=== PATIENT | female | born 1955 | race Two or more races ===

== ENCOUNTER 2023-01-25 10:52 | Inpatient (IN) | payer OTHER ==
[~2023-01-25] VITALS: Ht 152.4 cm; Wt 78.5 kg
[2023-01-25] MEDS ORDERED: ECOTRIN81 MG PO (11:53)
[2023-01-25] MEDS ORDERED: CARDIZEM30 MG PO (11:54)
[2023-01-25] MEDS ORDERED: ISOSORBIDE DINI30 MG PO (11:54)
[2023-01-25] MEDS ORDERED: CILOSTAZOL100 MG PO (11:54)
[2023-01-25] MEDS ORDERED: METFORMIN HCL500 M3 PO (11:55)
[2023-01-25] MEDS ORDERED: DICYCLOMINE HCL10 MG PO (11:55)
[2023-01-25] MEDS ORDERED: DULOXETINE HCL40 MG PO (11:56)
[2023-01-25] MEDS ORDERED: LIPITOR40 M1 PO (11:56)
[2023-01-25] MEDS ORDERED: GABAPENTIN600 MG PO (11:56)
[2023-01-29] MEDS ORDERED: PERCOCET 5-3251 EACH PO (07:10)
[2023-01-29] MEDS ORDERED: MEDROLPACK PO (07:11)
[2023-01-29] MEDS ORDERED: AMOX-CLAV 875-1 EACH PO (07:11)
[2023-01-29] MEDS ORDERED: COLACE100 MG PO (07:11)
[2023-01-29] MEDS ORDERED: ZOFRAN8 MG PO (07:12)
[2023-01-29] MEDS ORDERED: NEURONTIN800 MG PO (07:12)
[2023-01-30 06:56] LABS: HEMATOCRIT 29.7 % (36.0-45.00); HEMOGLOBIN 9.6 g/dL (12.0-15.00); MEAN CELL VOLUME 80.2 fL (80.00-100.00); MEAN CORPUSCULAR HGB CONC 32.4 g/dl (32.0-36.0); PLATELET COUNT 198 K/uL (150-450); RED CELL DISTRIBUTION WIDTH 16.9 % (11.5-14.5)
[2023-01-30 09:11] LABS: CALCIUM 8.1 mg/dL (8.5-10.1); CREATININE SERUM 0.66 mg/dL (0.55-1.02); GFR 89.33; POTASSIUM 4.35 mEq/L (3.5-5.1)
== END 2023-01-31 15:05 | DRG 455 ==
LOC: O/R 01-29 05:44 → PED 01-29 05:44 → SURH 01-29 07:00 → PED 01-29 11:35
PROVIDERS: ADMIT Orthopaedic Surgery Orthopaedic Surgery of the Spine; ATTEND Orthopaedic Surgery Orthopaedic Surgery of the Spine
PROC: 0SG1071 Fusion of 2 or more Lumbar Vertebral Joints with Autologous Tissue Substitute, Posterior Approach, Posterior Column, Open Approach (ICD-10-PCS; 2023-01-29)
PROC: 0SG10K1 Fusion of 2 or more Lumbar Vertebral Joints with Nonautologous Tissue Substitute, Posterior Approach, Posterior Column, Open Approach (ICD-10-PCS; 2023-01-29)
PROC: 0QB30ZZ Excision of Left Pelvic Bone, Open Approach (ICD-10-PCS; 2023-01-29)
PROC: 0QH004Z Insertion of Internal Fixation Device into Lumbar Vertebra, Open Approach (ICD-10-PCS; 2023-01-29)
PROC: 07DR0ZZ Extraction of Iliac Bone Marrow, Open Approach (ICD-10-PCS; 2023-01-29)
PROC: 4A1104G Monitoring of Peripheral Nervous Electrical Activity, Intraoperative, Open Approach (ICD-10-PCS; 2023-01-29)
PROC: 3E0F7SF Introduction of Other Gas into Respiratory Tract, Via Natural or Artificial Opening (ICD-10-PCS; 2023-01-29)
PROC: XRGC0R7 Fusion of 2 or more Lumbar Vertebral Joints using Custom-Made Anatomically Designed Interbody Fusion Device, Open Approach, New Technology Group 7 (ICD-10-PCS; principal; 2023-01-29 07:00)
PROC: BR29ZZZ Computerized Tomography (CT Scan) of Lumbar Spine (ICD-10-PCS; 2023-01-30)
DX: M41.26 Other idiopathic scoliosis, lumbar region (principal); M48.062 Spinal stenosis, lumbar region with neurogenic claudication; M51.36 Other intervertebral disc degeneration, lumbar region; R26.89 Other abnormalities of gait and mobility; I10 Essential (primary) hypertension; E11.9 Type 2 diabetes mellitus without complications; Z79.84 Long term (current) use of oral hypoglycemic drugs